=== PATIENT | female | born 1995 | race Caucasian/White ===

== ENCOUNTER 2019-09-21 10:04 | Outpatient (CLI) | payer BC, OTHER | END 2019-09-21 10:05 | disposition home or self-care (01) | LOC: EKG 10:04 | PROVIDERS: ATTEND Obstetrics & Gynecology | DX: R06.00 Dyspnea, unspecified (principal) | CPT/HCPCS: 93005; 93010 ==

== ENCOUNTER 2019-09-22 12:07 | Inpatient (IN) | payer BC, OTHER ==
[2019-09-22 12:21] VITALS: BMI 24.3
[2019-09-22] MEDS ORDERED: Butorphanol Tartrate 1 MG/ML VIAL SLOW IVP PRN (12:57)
[2019-09-22] MEDS ORDERED: Acetaminophen 500 MG TAB PO PRN (12:57)
[2019-09-22] MEDS ORDERED: Ondansetron PF 4 MG/2 ML Vial IVP PRN ×2 (12:57→18:56)
[2019-09-22] MEDS ORDERED: Promethazine HCl 25 MG/ML VIAL IM PRN ×2 (12:57→18:56)
[2019-09-22] MEDS ORDERED: Misoprostol 200 MCG TAB PR PRN (12:57)
[2019-09-22] MEDS ORDERED: HYDROcodone/Acetaminophen 5/325 mg Tablet PO PRN (12:57)
[2019-09-22] MEDS ORDERED: Ibuprofen 800 MG TAB PO PRN (12:57)
[2019-09-22] MEDS ORDERED: Lidocaine 1% (PF) 30 ML VIAL SC PRN (12:57)
[2019-09-22] MEDS ORDERED: NS / Oxytocin 40 units/1000ml 1,000 ML IV PRN (12:57)
[2019-09-22] MEDS ORDERED: Carboprost 250 MCG/ML AMP IM PRN (12:57)
[2019-09-22] MEDS ORDERED: Diphenoxylate HCl/Atropine Tablet PO PRN (12:57)
[2019-09-22] MEDS ORDERED: hydrALAZINE 20 MG/ML VIAL SLOW IVP PRN (12:57)
[2019-09-22] MEDS ORDERED: Methylergonovine 0.2 MG/ML VIAL IM PRN (12:57)
[2019-09-22] MEDS ORDERED: NS w/ Oxytocin 10 units 500 ML IV SCH (13:00)
[2019-09-22] MEDS ORDERED: Bupivacaine 0.25% 10 ML VIAL ONE (13:07)
--- NOTE | 2019-09-22 13:08 | PDOC.LDHP ---
Labor and Delivery H&P Chief complaint: loss of fluid HPI: 24 yo @ 37w6d by 7 week CRL who presents with c/o LOF this AM. Clear fluid. Denies any other concerns. Pt dx with RBBB yesterday, she was unable to see cardiology today as she has PROM. She denies any SOB/CP or other concerns today. Current gestational age (weeks): 37 Due date: 10/07/19 Dating criteria: first trimester ultrasound Grav: 2 Para: 1 OB History Details: 2014 TSVD Current complications: none Abnormal US findings: No Current medications: pre- vitamins Previous surgical history: none Allergies/Adverse Reactions: Allergies Allergy/AdvReac Type Severity Reaction Status Date / Time No Known Allergies Allergy Verified 09/22/19 12:21 Social history: none - Physical Exam Vital signs reviewed and normal: yes General: NAD Heart: RRR Lungs: nonlabored breathing Abdomen: gravid Extremeties: no edema FHT: category 1 (140s, mod sophie, +accels, no decels) [place] contractions every: irregular pattern - Vaginal Exam cm dilated: 2 (cephalic; gross ROM clear fluid ) Effacement: 25% Station: -2 - OB Labs Blood type: O RH: positive Antibody Screen: negative HIV: negative RPR: negative HEPSAg: negative 1 hour GCT: negative GBS: negative Urine drug screen: negative Rubella: immune - Assessment 37w6d IUP PROM Recent dx maternal RBBB Right ovarian cyst, presumed dermoid ( 4 cm) - Plan Plan: admit to L&D, labor augmentation if indicated (start pitocin), informed consent obtained, anesthesia consult for pain management -: Will contact cardiology to determine if pt need inpatient vs outpatient cardiology evaluation as she was unable to go this morning.
[2019-09-22] MEDS: Lactated Ringer's 1,000 ML IV SCH ×2 (13:10→19:30)
[2019-09-22 13:35] LABS: Hemoglobin 12.3 g/dL (12.0-16.0); Mean Corpuscular HGB CONC 34.7 g/dL (32.0-36.0); Mean Corpuscular Hemoglobin 29.3 pg (27.0-31.0); Mean Corpuscular Volume 84.5 fL (78.0-98.0); Mean Platelet Volume 7.7 fL (7.4-10.4); Platelet Count 151 thou/uL (130-400); Red Blood Cell (RBC) Count 4.18 mill/uL (4.20-5.40); White Blood Cell (WBC) Count 7.5 thou/uL (4.8-10.8)
[2019-09-22 14:15] LABS: Syphilis Antibody Nonreactive (Nonreactive); Syphilis Antibody Index 0.03 S/CO (<1.00 Non-Reactive)
[2019-09-22 14:23] LABS: HBSAg Index 0.16 S/CO (0-0.99); HIV (1/2) Antibody/Antigen Non-Reactive (NonReactive); HIV 1/2 INDEX 0.07 S/CO (<1.00); Hep B Surf Ag Non-Reactive S/CO (NonReactive)
--- NOTE | 2019-09-22 17:20 | PDOC.LDPN ---
Labor & Delivery Progress Note - Subjective Subjective: painful contractions - Objective Vital signs reviewed and normal: yes General: NAD Uterine fundus: non tender Dilation: 3-4 Effacement: 50% Station: -2 FHT: category 1 (140s, mod sophie, +accels, no decels ) [place] contractions every: Pt feels q2-3 min, not assessing well IUPC placed: yes - Assessment (1) 37 weeks gestation of Code(s): Z3A.37 - 37 WEEKS GESTATION OF Current Visit: Yes Status : Acute (2) PROM (premature rupture of membranes) Code(s): O42.90 - NAYELI ROM, 7TH0 BETW RUPT & ONST LABR, UNSP WEEKS OF GEST Current Visit: Yes Status: Acute (3) Right bundle branch block (RBBB) Code(s): I45.10 - UNSPECIFIED RIGHT BUNDLE-BRANCH BLOCK Current Visit: Yes Status: Acute Plan: continue plan of care, pitocin for augmentation -: IUPC placed to better assess ctx. Cardiology has seen pt, echo ordered. Recommended continue with augmentation and delivery as pt asx.
[2019-09-22] MEDS ORDERED: Fentanyl 4 mcg/Bup 0.1% Cadd 100 ML ONE (17:39)
--- NOTE | 2019-09-22 18:30 | CON ---
DATE OF CONSULTATION: 09/22/2019 REASON FOR CONSULTATION: Right bundle branch block. HISTORY OF PRESENT ILLNESS: Ms. Altamirano is a very pleasant 24-year-old white female, who comes to the hospital for having had her membranes ruptured. She is 37 weeks . She was admitted for this. She was actually diagnosed with a new onset right bundle branch block yesterday and was referred to see Cardiology. She obviously has not had the time to see them as this was diagnosed yesterday and she is just coming in today to the hospital. She denies any chest pain, tightness, or pressure. No shortness of breath. Her has been pretty unremarkable up until today. This is her second . She has a 4-year-old at home. PAST MEDICAL HISTORY: None. PAST SURGICAL HISTORY: None. OUTPATIENT MEDICATIONS: multivitamins. ALLERGIES: NO KNOWN DRUG ALLERGIES. FAMILY HISTORY: Noncontributory. REVIEW OF SYSTEMS: A 12-point review of systems was done and was all negative unless stated in the history of present illness. PHYSICAL EXAMINATION: VITAL SIGNS: Temperature 99.0, pulse 78, respiratory rate 18, saturation 98% on room air, and blood pressure 122/68. GENERAL: Awake, alert, oriented x3. No distress. HEENT: Normocephalic, atraumatic. NECK: Supple. LUNGS: Clear. CARDIOVASCULAR: S1 and S2. No S3 or S4. No murmurs. ABDOMEN: Soft. Positive bowel sounds. EXTREMITIES: Trace edema. SKIN: Warm and dry. LABORATORY DATA: Reviewed. White count of 7.5, hemoglobin of 12, hematocrit 35, platelet count of 151. Hep B syphilis and HIV are all nonreactive. ASSESSMENT: 1. Right bundle branch block. 2. 37-week gestation. 3. Premature rupture of membranes. PLAN: 1. We will plan on doing an echocardiogram, unlikely if this right bundle branch block is causing any significant cardiac issues. 2. I do not see any contraindication just by having a right bundle branch block for induction of . 3. Would proceed as you would normally do with a premature rupture of membranes. 4. Further recommendations per results of echocardiogram. Job ID: [id number]
[2019-09-22] MEDS ORDERED: Naloxone HCl 0.4 mg/ml Vial IVP PRN ×2 (18:56)
[2019-09-22] MEDS ORDERED: diphenhydrAMINE 50 MG/ML VIAL IVP PRN (18:56)
[2019-09-22] MEDS ORDERED: Lactated Ringer's 500 ML IV PRN (18:56)
[2019-09-22] MEDS ORDERED: Acetaminophen 325 MG TAB PO PRN (18:56)
[2019-09-22] MEDS ORDERED: ePHEDrine/0.9% NaCl/PF SYRINGE 50 mg/10 ml SLOW IVP PRN (18:56)
[2019-09-22] MEDS ORDERED: Communication Order-Pharmacy FS SCH (19:00)
[2019-09-22] MEDS ORDERED: Fentanyl 4 mcg/Bupivacaine 0.1% Cassette 100 ML EPIDURAL SCH (19:00)
--- NOTE | 2019-09-22 21:03 | PDOC.EVN ---
Event Note - Event Note Event Note: Notified by RN due to variable decels. Strip reviewed. Pitocin d/c'ed by RN. Position changes done. Amnioinfusion started. FSE placed by RN and FHTs now reassuring without deep variable decels. SVE 780/0 per RN. Will continue amnioinfusion at this time.
--- NOTE | 2019-09-22 22:19 | PDOC.OPDEL ---
OB Operative/Delivery Note Delivery Dr/Surgeon: Toyin Oglesby DO Pre-Delivery Diagnosis: ruptured membrane Procedure/Post Delivery Dx: spontaneous vaginal delivery Weeks gestation: 37 Anesthesia: epidural - Findings A Sex: female - 1 min: 9 - 5 min: 9 - Additional Findings/Plan Placenta delivered: spontaneous Repaired Obstetrical Laceration: none Estimated blood loss: EBL 300 cc; QBL 432 Compilations/Other Findings: Variable decels with maternal pushing Infant delivered in JOHN position with immediate cry and good tone/color Nuchal x 1 Normal appearing placenta.
[2019-09-23] MEDS ORDERED: Benzocaine-Menthol 82.5 ML CAN TOP PRN (00:27)
[2019-09-23] MEDS ORDERED: diphenhydrAMINE 25 MG CAP PO PRN (00:27)
[2019-09-23] MEDS ORDERED: Bisacodyl 10 MG SUPP PR PRN (00:27)
[2019-09-23] MEDS ORDERED: NS / Oxytocin 40 units/1000ml 1,000 ML IV SCH (00:27)
[2019-09-23] MEDS ORDERED: Preparation H Ointment 57 gram tube RC PRN (00:27)
[2019-09-23] MEDS ORDERED: Milk Of Magnesia 30 ML UDCUP PO PRN (00:27)
[2019-09-23] MEDS ORDERED: hydrALAZINE 20 MG/ML VIAL SLOW IVP PRN (00:27)
[2019-09-23] MEDS ORDERED: Lanolin Ointment 7 GM TUBE TOP PRN (00:27)
[2019-09-23] MEDS: HYDROcodone/Acetaminophen 5/325 mg Tablet PO PRN (02:57)
[2019-09-23] MEDS: Ibuprofen 800 MG TAB PO SCH ×3 (03:38→20:16)
[2019-09-23 04:57] LABS: Hemoglobin 11.4 g/dL (12.0-16.0); Mean Corpuscular HGB CONC 33.7 g/dL (32.0-36.0); Mean Corpuscular Hemoglobin 28.6 pg (27.0-31.0); Mean Corpuscular Volume 84.9 fL (78.0-98.0); Mean Platelet Volume 7.8 fL (7.4-10.4); Platelet Count 140 thou/uL (130-400); RBC Distribution Width 12.9 % (11.5-14.5); Red Blood Cell (RBC) Count 3.98 mill/uL (4.20-5.40); White Blood Cell (WBC) Count 12.1 thou/uL (4.8-10.8)
[2019-09-23] MEDS: Ferrous Sulfate 325 MG TAB PO SCH ×2 (07:52→17:25)
--- NOTE | 2019-09-23 08:29 | PDOC.PP ---
Post Progress Note Post Day #: 1 Subjective: No concerns. Breast feeding. Minimal pain and lochia. Echo this AM. No SOB/CP. PO intake tolerated: yes Flatus: yes Ambulation: yes Vital Signs (12 hours) Temp Pulse Resp BP Pulse Ox 09/23/19 08:01 98.0 F 78 18 118/63 96 09/23/19 03:20 98.3 F 97 16 116/57 L 99 Weight Weight 146 lb - Physical Examination General: NAD Cardiovascular: RRR Respiratory: non-labored breathing Abdominal: no distention, appropriately TTP Fundus firm & at: below umbilicus Extremities: negative homans (B) Neurological: no gross focal deficits Psychiatric: A&Ox3, normal affect Result Diagrams: 09/23/19 04:31 Additional Labs: Post Labs Blood Type O POSITIVE 09/22/19 13:15 Hep Bs Antigen Non-Reactive S/CO (NonReactive) 09/22/19 13:16 (1) 37 weeks gestation of Code(s): Z3A.37 - 37 WEEKS GESTATION OF Status: Resolved (2) PROM (premature rupture of membranes) Code(s): O42.90 - NAYELI ROM, 7TH0 BETW RUPT & ONST LABR, UNSP WEEKS OF GEST Status: Resolved (3) Right bundle branch block (RBBB) Code(s): I45.10 - UNSPECIFIED RIGHT BUNDLE-BRANCH BLOCK Status: Acute (4) Vaginal delivery Code(s): O80 - ENCOUNTER FOR FULL-TERM UNCOMPLICATED DELIVERY Status: Acute - Assessment/Plan PPD1 VSSAF Continue PP care Echo today due to RBBB Plan for d/c 1-2 days due to late delivery and pending cardiology recommendation after echo.
[2019-09-23] MEDS: Docusate Calcium (SURFAK) 240 MG CAP PO SCH ×2 (09:55→20:15)
[2019-09-23] MEDS: Prenatal Vitamin 1 TAB PO SCH (09:55)
--- NOTE | 2019-09-23 12:38 | PDOC.CPN ---
- Subjective Date: 09/23/19 Time: 12:36 Interval history: She is doing well. She delivered a healthy baby girl overnight without issues. - Review of Systems General: denies: fever/chills, weight/appetite/sleep changes, night sweats, fatigue Respiratory: denies: cough, congestion, shortness of breath, exercise intolerance Cardiovascular: denies: chest pain, palpitation, edema, paroxysmal nocturnal dyspnea, orthopnea Gastrointestinal: denies: nausea, vomiting, diarrhea, constipation, abd pain, GI bleeding Musculoskeletal: denies: pain, tenderness, stiffness, swelling, arthritis/ arthralgias Neurological: denies: numbness, syncope, seizure, weakness - Objective Allergies/Adverse Reactions: Allergies Allergy/AdvReac Type Severity Reaction Status Date / Time No Known Allergies Allergy Verified 09/22/19 12:21 Visit Medications: Current Medications Acetaminophen (Tylenol) 500 mg PO Q6H PRN PRN Reason: Headache/Fever or Pain Hydrocodone Bitart/Acetaminophen (Irving 5/325) 1 tab PO Q4H PRN PRN Reason: Moderate Pain (4-6) Last Admin: 09/23/19 02:57 Dose: 1 tab Benzocaine/Menthol (Dermoplast) 0 ml TOP PRN PRN PRN Reason: Pain Bisacodyl (Dulcolax) 10 mg NE Q8H PRN PRN Reason: Constipation Carboprost Tromethamine (Hemabate) 250 mcg IM ONE PRN PRN Reason: Post- hemorrhage Stop: 09/23/19 12:58 Diphenhydramine HCl (Benadryl) 12.5 mg IVP Q3H PRN PRN Reason: Itching Diphenhydramine HCl (Benadryl) 25 mg PO Q4H PRN PRN Reason: Itching Docusate Calcium (Surfak) 240 mg PO BID [facility] Last Admin: 09/23/19 09:55 Dose: 240 mg Ferrous Sulfate (Feosol) 325 mg PO BID-[facility] Last Admin: 09/23/19 07:52 Dose: Not Given Hydralazine HCl (Apresoline) 5 mg SLOW IVP ONE PRN PRN Reason: SBP >/= 160 or DBP >/= 110 Stop: 09/23/19 12:58 Hydralazine HCl (Apresoline) 5 mg SLOW IVP ONE PRN PRN Reason: SBP >/= 160 or DBP >/= 110 Stop: 09/24/19 00:28 Oxytocin/Sodium Chloride (Ns / Pitocin 40 Units/1000 Ml) 1,000 mls @ 0 mls/hr IV .Q0M [facility] Last Admin: 09/23/19 00:39 Dose: 1,000 mls Ibuprofen (Motrin) 800 mg PO Q8HR [facility] Last Admin: 09/23/19 03:38 Dose: Not Given Lanolin (Lansinoh Ointment) 0 gm TOP PRN PRN PRN Reason: Breast Care Magnesium Hydroxide (Milk Of Magnesium) 30 ml PO DAILY PRN PRN Reason: Constipation Methylergonovine Maleate (Methergine) 0.2 mg IM ONE PRN PRN Reason: Post- hemorrhage Stop: 09/23/19 12:58 Miscellaneous Information (Communication Order-Pharmacy) 1 each FS ONE [facility] Stop: 09/23/19 19:01 Miscellaneous Medication (Preparation H Ointment) 0 gm RC TIDPRN PRN PRN Reason: Hemorrhoids Misoprostol (Cytotec) 800 mcg NE ONE PRN PRN Reason: Post- hemorrhage Stop: 09/23/19 12:58 Ondansetron HCl (Zofran) 4 mg IVP ONE PRN PRN Reason: Nausea/Vomiting Stop: 09/23/19 18:57 Multivit/Folic Acid/Iron ( Vitamin) 1 tab PO DAILY [facility] Last Admin: 09/23/19 09:55 Dose: 1 tab Promethazine HCl (Phenergan) 12.5 mg IM Q4H PRN PRN Reason: Nausea/Vomiting Sodium Chloride (Flush - Normal Saline) 10 ml IVF PRN PRN PRN Reason: Saline Flush Vital Signs & Weight: Vital Signs Temp Pulse Resp BP Pulse Ox 09/23/19 08:01 98.0 F 78 18 118/63 96 09/23/19 03:20 98.3 F 97 16 116/57 L 99 Weight 146 lb - Physical Exam General: alert & oriented x3 HEENT: mucus membranes moist Neck: supple neck Cardiac: regular rate and rhythm Lungs: clear to auscultation Neuro: grossly intact Abdomen: active bowel sounds Extremities: no edema Skin: clear Musculoskeletal: no pain - Labs Result Diagrams: 11/22/19 04:31 - Assessment/Plan Assessment/Plan: 1. RBBB 2. 1 day post PLAN; - Normal LV function, normal echo overall. - Will plan on follow up in 6 months for repeat ECG, If her RBBB persists she will need repeat echo in 1 yr. - Will sign off. Please call with any questions.
[2019-09-24] MEDS: HYDROcodone/Acetaminophen 5/325 mg Tablet PO PRN (01:56)
[2019-09-24] MEDS: Ibuprofen 800 MG TAB PO SCH (05:50)
--- NOTE | 2019-09-24 06:32 | PDOC.PP ---
Post Progress Note Post Day #: PPD2 Subjective: Doing well, no c/o. PO intake tolerated: yes Flatus: yes Ambulation: yes Vital Signs (12 hours) Temp Pulse Resp BP Pulse Ox 09/23/19 18:53 97.8 F 79 16 121/66 96 Weight Weight 66.224 kg - Physical Examination General: NAD Respiratory: non-labored breathing Abdominal: no distention Psychiatric: normal affect Result Diagrams: 09/23/19 04:31 Additional Labs: Post Labs Blood Type O POSITIVE 09/22/19 13:15 Hep Bs Antigen Non-Reactive S/CO (NonReactive) 09/22/19 13:16 - Assessment/Plan DC home. Precautions reviewed. RTC 6 mos. with Cardiology for f/u EKG. RTC [address] Cancino.
[2019-09-24] MEDS: Ferrous Sulfate 325 MG TAB PO SCH (07:03)
[2019-09-24 07:52] VITALS: BP 113/62; TEMP 98.3
[2019-09-24] MEDS: Prenatal Vitamin 1 TAB PO SCH (09:58)
[2019-09-24] MEDS: Docusate Calcium (SURFAK) 240 MG CAP PO SCH (09:58)
== END 2019-09-24 15:55 | disposition home or self-care (01) | DRG 805 ==
LOC: L&D/OP 12:07 → L&D 16:01 → 3SW 16:14 → UNDODISIN 09-24 12:55
PROVIDERS: ADMIT Obstetrics & Gynecology; ATTEND Obstetrics & Gynecology
PROC: 10H07YZ Insertion of Other Device into Products of Conception, Via Natural or Artificial Opening (ICD-10-PCS; principal; 2019-09-22)
PROC: 10E0XZZ Delivery of Products of Conception, External Approach (ICD-10-PCS; 2019-09-22)
PROC: 10E0XZZ Delivery of Products of Conception, External Approach (ICD-10-PCS; 2019-09-22)
DX: O42.92 Full-term premature rupture of membranes, unspecified as to length of time between rupture and onset of labor (principal); O99.42 Diseases of the circulatory system complicating childbirth; Z37.0 Single live birth; O76 Abnormality in fetal heart rate and rhythm complicating labor and delivery; O99.89 Other specified diseases and conditions complicating pregnancy, childbirth and the puerperium; D27.0 Benign neoplasm of right ovary; O69.81X0 Labor and delivery complicated by cord around neck, without compression, not applicable or unspecified; Z3A.37 37 weeks gestation of pregnancy; I45.10 Unspecified right bundle-branch block
CPT/HCPCS: 36415; 51702; 85027; 86780; 86850; 86900; 86901; 87340; 87389; 93005; 93306; 99285; J2590; S0020

== ENCOUNTER 2020-06-07 07:00 | Outpatient (CLI) | payer BC, OTHER ==
[2020-06-07 12:00] LABS: BHCG - Serum Negative (NEGATIVE); Pregs Control Bar Appear? YES (CONTROL BAR)
[2020-06-07 12:01] LABS: Pregs Control Background? CLEAR/WHITE (CLR/WHITE)
== END 2020-06-07 07:01 | disposition home or self-care (01) ==
LOC: LABBT 07:00
PROVIDERS: ATTEND Student in an Organized Health Care Education/Training Program
DX: Z01.812 Encounter for preprocedural laboratory examination (principal); N83.201 Unspecified ovarian cyst, right side; N83.202 Unspecified ovarian cyst, left side
CPT/HCPCS: 84703